=== PATIENT | female | born 1975 | race Caucasian/White ===

== ENCOUNTER 2018-09-30 19:03 | Emergency (ER) | payer OTHER ==
[2018-09-30 19:42] VITALS: BP 121/82; PULSE 67; RESP 18; TEMP 98.4; O2SAT 100
--- NOTE | 2018-09-30 19:52 | ED PDOC ---
Lower Extremity Pain/Injury Time Seen by Provider: 09/30/18 19:41 Chief Complaint (Nursing): Lower Extremity Problem/Injury Chief Complaint (Provider): Right Foot Pain History Per: Patient History/Exam Limitations: no limitations Onset/Duration Of Symptoms: Days (x3 weeks), Worse Since (past couple days) Current Symptoms Are (Timing): Still Present Additional Complaint(s): 43 year old female presents to the ED for evaluation of pain to the lateral aspect of her right foot for the past three weeks. 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 She states she has just been working through the pain because initially it felt better after walking on it and taking NSAIDs, but the past couple days the pain has been worsening, unrelieved with ice and wraps. Of note, patient says she has a history of fractures in her right foot which was repaired but healed improperly leaving her with a bony prominence which doctors told her may cause some issues down the line. PMD: none provided Past Medical History Reviewed: Historical Data, Nursing Documentation, Vital Signs Vital Signs: Last Vital Signs Temp 98.4 F 09/30/18 19:40 Pulse 67 09/30/18 19:40 Resp 18 09/30/18 19:40 BP 121/82 09/30/18 19:40 Pulse Ox 100 09/30/18 19:40 - Medical History PMH: Atrial Fibrillation, Fractures (right foot) - Surgical History Other surgeries: ablation in 08/03 - Family History Family History: States: Unknown Family Hx - Social History Current smoker - smoking cessation education provided: No - Home Medications Home Medications: Ambulatory Orders Medication Instructions Recorded Naproxen 500 mg PO Q12H PRN #30 tab 09/30/18 - Allergies Allergies/Adverse Reactions: Allergies Allergy/AdvReac Type Severity Reaction Status Date / Time No Known Allergies Allergy Verified 09/30/18 19:50 Review of Systems ROS Statement: Except As Marked, All Systems Reviewed And Found Negative Musculoskeletal: Positive for: Foot Pain (right) Physical Exam - Reviewed Nursing Documentation Reviewed: Yes Vital Signs Reviewed: Yes - Physical Exam Appears: Positive for: No Acute Distress Head Exam: Positive for: ATRAUMATIC, NORMOCEPHALIC Skin: Positive for: Normal Color, Warm. Negative for: Rash Cardiovascular/Chest: Positive for: Regular Rate, Rhythm Respiratory: Positive for: Normal Breath Sounds. Negative for: Respiratory Distress Pulses-Dorsalis Pedis (L): 2+ Pulses-Dorsalis Pedis (R): 2+ Extremity: Positive for: Normal ROM (of right foot with pain on ambulation), Tenderness (point tenderness to anterior aspect of right foot extending to fifth phalange), Capillary Refill (less than 2 seconds). Negative for: Swelling (or bruising noted to right foot) Neurological/Psych: Positive for: Awake, Alert, Oriented (x3). Negative for: Motor/Sensory Deficits - Laboratory Results Urine POC: Negative - ECG O2 Sat by Pulse Oximetry: 100 (RA) Pulse Ox Interpretation: Normal Medical Decision Making Medical Decision Making: Time: 1949 Initial Impression: right foot pain, r/o fracture Initial Plan: --U-preg --Ibuprofen 600mg PO --Right foot XR 2044 No fractures seen on XR as read by me. Patient informed that if there are any discrepancies on the official read she will be notified in 24 hours. In the mean time, patient's foot wrapped in taj bandage, given script for Naproxen, and educated on proper footwear to use until foot feels better. Crutches provided with crutch training done by life support technician. Additionally given referral to podiatry. All questions answered, return parameters discussed, and patient verbalized agreement/understanding of plan. Stable for discharge. Scribe Attestation: Documented by Dejah Velásquez, acting as a scribe for [employer]. Provider Scribe Attestation: All medical record entries made by the Scribe were at my direction and personally dictated by me. I have reviewed the chart and agree that the record accurately reflects my personal performance of the history, physical exam, medical decision making, and the department course for this patient. I have also personally directed, reviewed, and agree with the discharge instructions and disposition. Disposition - Clinical Impression Clinical Impression: Foot pain, right - Patient ED Disposition Is Patient to be Admitted: No - Disposition Referrals: Talon Bull DPM [[facility]] - Disposition: Routine/Home Disposition Time: 20:46 Condition: GOOD Prescriptions: Naproxen 500 mg PO Q12H PRN #30 tab PRN Reason: Pain, Moderate (4-7) Instructions: Metatarsalgia Print Language: JAPANESE - POA Present On Arrival: None
--- NOTE | 2018-10-01 10:55 | RAD ---
Date of service: 09/30/2018 PROCEDURE: Right Foot Radiographs. HISTORY: foot pain COMPARISON: None. TECHNIQUE: 3 views obtained. FINDINGS: BONES: Bone alignment and mineralization are normal. There is no acute displaced fracture or bone destruction. There is a prominent dorsal calcaneal enthesophyte. JOINTS: Normal. SOFT TISSUES: There is mild dorsal soft tissue swelling. OTHER FINDINGS: None. IMPRESSION: No acute displaced fracture or dislocation.
== END 2018-09-30 20:47 | disposition home or self-care (01) ==
LOC: H.ER 19:03
DX: M79.671 Pain in right foot (principal)